=== PATIENT | male | born 1980 | race Caucasian/White ===

== ENCOUNTER 2017-10-16 09:58 | Emergency (ER) ==
[2017-10-16 10:04] VITALS: BP 211/166; TEMP 98; BMI 24.7
[2017-10-16] MEDS ORDERED: MORPHINE 2 MG/ML SYRINGE IM STA (10:09)
[2017-10-16] MEDS ORDERED: ZOFRAN 4 MG/2 ML IM STA (10:09)
[2017-10-16] MEDS ORDERED: ZESTRIL PO STA (10:49)
--- NOTE | 2017-10-16 10:52 | CT ---
EXAM: CT ABDOMEN AND PELVIS HISTORY: Abdominal pain, history gallbladder disease TECHNIQUE: CT abdomen and pelvis without intravenous contrast. Images were reconstructed using 3 mm section thickness. Reformations were prepared. COMPARISON: None FINDINGS: Diagnostic limitations exist without including contrast enhanced images. No focal hepatic or splenic lesion identified. There is ascites in the abdomen and pelvis. Ascites is simple (water attenuation ) and small volume. Gallbladder is poorly seen although has no obvious distension or calcified intra luminal calculi. Cannot exclude gallbladder wall thickening. The pancreas at the level of the head i s poorly seen. There is diffuse abdominal fat stranding, especially in the upper quadrants. No zakia s extra hepatic or intrahepatic biliary dilatation. Normal appendix. Bilateral nephrolithiasis with out obvious hydronephrosis. Ureters are poorly seen. Minimal atherosclerotic disease. No gastric d istension. Nonobstructive bowel gas pattern. The urinary bladder is decompressed, grossly unremarka ble. No prostate enlargement. No ventral hernia or acute bony abnormality. Lung bases are clear. N o pneumoperitoneum is seen. IMPRESSION: 1. Abdominal ascites and diffuse abdominal fat stranding consistent with an inflammatory or infectio us process. Primary considerations would include cholecystitis, pancreatitis or peptic ulcer disease . There is no free air or bowel obstruction. Normal appendix. 2. Nephrolithiasis without hydronephrosis.
[2017-10-16] MEDS ORDERED: UNASYN 3 GM in SODIUM CHLORIDE 100 ML IV STA (11:19)
[2017-10-16] MEDS ORDERED: DILAUDID 1 MG/ML SYRINGE IVP STA (11:24)
[2017-10-16] MEDS ORDERED: UNASYN ONE (11:27)
--- NOTE | 2017-10-16 12:11 | ED.PDOC ---
General ED Provider: Dr. CHRISTA HANSEN Chief Complaint: Abdominal Pain Stated Complaint: ABDOMINAL PAIN Time Seen by Physician: 10:00 (PAIN RUQ/RLQ ONSET 12 HRS WORSE PAST 3 HRS) Mode of Arrival: Walk-In Information Source: Patient Exam Limitations: No limitations Primary Care Provider: NO PMD Nursing and Triage Documentation Reviewed and Agree: Yes Reviewed sepsis parameters & appropriate labs ordered?: Yes System Inflammatory Response Syndrome: Not Applicable Sepsis Protocol: For patient's 13 years and over: Temp is 96.8 and below OR 101 and greater Pulse >90 BPM Resp >20/minute Acutely Altered Mental Status Are patient's symptoms suggestive of a new infection, such as: -Pneumonia -Skin, Soft Tissue -Endocarditis -UTI -Bone, Joint Infection -Implantable Device -Acute Abdominal Infection -Wound Infection -Meningitis -Blood Stream Catheter Infection -Unknown System Inflammatory Response Syndrome: Not Applicable GI Complaint Exam - Abdominal Pain Complaint/Exam Onset: Gradual Duration: 11 HRS Timing: Constant Initial Severity: Severe Location of Pain: RUQ, RLQ Radiates To: Denies: Chest, Back, Flank, LLQ, RLQ, Inguinal Character: Reports: Throbbing Aggravating: Reports: Movement, Food, Position Alleviating: Reports: Rest, Position, Medication, Bowel movement (12 HRS AGO). Denies: Vomiting, OTC analgesics Associated Signs and Symptoms: Reports: Diaphoresis, Decreased appetite, Nausea. Denies: Fever, Cough, Chest pain, Dizziness, Back pain, Constipation, Blood in stool, Dysuria, Urinary frequency, Decreased urine output, Discharge, Vomiting, Diarrhea, Decreased activity Related History: Reports: Similar episode (NOT SEVERE ) AAA Risk Factors: Reports: Hypertension (PT NONE COMPLAINT WITH HIS MEDS OF HYDRALZINE , COREG.) Cardiac Risk Factors: Reports: Hypertension Testicular Torsion Risk Factors: Reports: None Surgical Obstruction Risk Factors: Reports: None Related Surgical History: Reports: None Genitalia Exam: Present: Normal findings Differential Diagnoses: Appendicitis, Bowel Obstruction, Constipation, Pancreatitis, GB Review of Systems - Review Of Systems Constitutional: Reports: Weakness Eyes: Reports: No symptoms Ears, Nose, Mouth, Throat: Reports: No symptoms Respiratory: Reports: No symptoms Cardiac: Reports: No symptoms GI: Reports: Abdominal pain : Reports: No symptoms Musculoskeletal: Reports: No symptoms Skin: Reports: No symptoms Neurological: Reports: No symptoms Endocrine: Reports: No symptoms Hematologic/Lymphatic: Reports: No symptoms All Other Systems: Reviewed and Negative Past Medical History - Past Medical History Previously Healthy: Yes Endocrine: Reports: None Cardiovascular: Reports: Hypertension Respiratory: Reports: None Hematological: Reports: None Gastrointestinal: Reports: None Genitourinary: Reports: None Neuro/Psych: Reports: None Musculoskeletal: Reports: None Cancer: Reports: None - Surgical History General Surgical History: Reports: None - Family History Family History: Reports: None - Social History Smoking Status: Current every day smoker Hx Substance Use: Yes (marijuana) Alcohol Screening: None Physical Exam - Physical Exam Appearance: Ill-appearing Ill-appearing: Moderate Pain Distress: Severe Eyes: BRYAN, EOMI, Conjunctiva clear ENT: Ears normal, Nose normal, Oropharynx normal Respiratory: Airway patent, Breath sounds clear, Breath sounds equal, Respirations nonlabored Cardiovascular: RRR, Pulses normal, No rub, No murmur GI/: No masses, No Organomegaly, Tender (RUQ ), Bowel sounds hypoactive Musculoskeletal: Normal strength, ROM intact, No edema, No calf tenderness Skin: Warm, Dry, Normal color Neurological: Sensation intact, Motor intact, Reflexes intact, Cranial nerves intact, Alert, Oriented Psychiatric: Affect appropriate, Mood appropriate Interpretation - Radiology Interpretation Radiology Interpretation By: Radiologist (G/B DISEASE , ABDOMINAL ASCITES FAT STRANDING , NORMAL APPENDIX NO FREE AIR BOWEL) Radiology Results: Positive - Striker Off Rate: Normal Rhythm: Sinus Ectopy: None - EKG Interpretation Rate: Normal Rhythm: Sinus Ectopy: None [place]: [place] ST Segment: Normal Critical Care Note - Critical Care Note Total Time (mins): 0 Course - Course Hematology/Chemistry: 10/16/17 10:15 10/16/17 10:15 Orders, Labs, Meds: Lab Review 10/16/17 10/16/17 10/16/17 10:05 10:05 10:15 WBC 13.45 H RBC 5.17 Hgb 14.7 Hct 43.8 MCV 84.7 MCH 28.4 MCHC 33.6 RDW Coeff of Sydnee 14.9 H Plt Count 328 Immature Gran % (Auto) 0.5 Neut % (Auto) 84.9 Lymph % (Auto) 8.8 L Custer % (Auto) 5.2 Eos % (Auto) 0.2 Baso % (Auto) 0.4 Immature Gran # (Auto) 0.1 Neut # (Auto) 11.4 H Lymph # (Auto) 1.2 Custer # (Auto) 0.7 Eos # (Auto) 0.0 Baso # (Auto) 0.1 Sodium Potassium Chloride Carbon Dioxide Anion Gap BUN Creatinine Estimated GFR (MDRD) BUN/Creatinine Ratio Glucose Calcium Total Bilirubin AST ALT Alkaline Phosphatase Total Creatine Kinase 162 CK-MB (CK-2) 4.2 H CK-MB (CK-2) % 2.92663 Troponin I 0.1090 Total Protein Albumin Globulin Albumin/Globulin Ratio Amylase Lipase Urine Color Urine Clarity Urine pH Ur Specific [place] Urine Protein Urine Glucose (UA) Urine Ketones Urine Blood Urine Nitrite Urine Bilirubin Urine Urobilinogen Ur Leukocyte Esterase Urine Microscopic RBC Urine Microscopic WBC Ur Squamous Epith Cells Urine Opiates Screen Negative Ur Oxycodone Screen Negative Urine Methadone Screen Negative Ur Propoxyphene Screen Negative Ur Barbiturates Screen Negative U Tricyclic Antidepress Negative Ur Phencyclidine Scrn Negative Ur Amphetamine Screen Negative U Methamphetamines Scrn Negative U Benzodiazepines Scrn Negative Urine Cocaine Screen Negative U Cannabinoids Screen Positive 10/16/17 10/16/17 10:15 10:23 WBC RBC Hgb Hct MCV MCH MCHC RDW Coeff of Sydnee Plt Count Immature Gran % (Auto) Neut % (Auto) Lymph % (Auto) C[place] % (Auto) Eos % (Auto) Baso % (Auto) Immature Gran # (Auto) Neut # (Auto) Lymph # (Auto) C[place] # (Auto) Eos # (Auto) Baso # (Auto) Sodium 130 L Potassium 4.0 Chloride 91 L Carbon Dioxide 25 Anion Gap 18.0 BUN 31 H Creatinine 1.65 H Estimated GFR (MDRD) 47.00 BUN/Creatinine Ratio 18.78 Glucose 112 H Calcium 8.8 Total Bilirubin 1.9 H AST 78 H ALT 303 H Alkaline Phosphatase 215 H Total Creatine Kinase CK-MB (CK-2) CK-MB (CK-2) % Troponin I Total Protein 6.7 Albumin 3.0 L Globulin 3.7 Albumin/Globulin Ratio 0.81 Amylase 74 Lipase 21 Urine Color Yellow Urine Clarity Clear Urine pH 5.0 Ur Specific [place] 1.025 Urine Protein 3+ Urine Glucose (UA) Negative Urine Ketones Trace Urine Blood Trace-intact Urine Nitrite Negative Urine Bilirubin 1+ Urine Urobilinogen 0.2 Ur Leukocyte Esterase Negative Urine Microscopic RBC 0-2 Urine Microscopic WBC 0-2 Ur Squamous Epith Cells 0-2 Urine Opiates Screen Ur Oxycodone Screen Urine Methadone Screen Ur Propoxyphene Screen Ur Barbiturates Screen U Tricyclic Antidepress Ur Phencyclidine Scrn Ur Amphetamine Screen U Methamphetamines Scrn U Benzodiazepines Scrn Urine Cocaine Screen U Cannabinoids Screen Orders Category Date Time Status EKG-(ED ONLY) Stat CARDIO 10/16/17 10:49 Ordered AMYLASE Stat LAB 10/16/17 10:15 Completed CBC W/ AUTO DIFF Stat LAB 10/16/17 10:15 Completed COMPREHENSIVE METABOLIC PANEL Stat LAB 10/16/17 10:15 Completed CREATINE KINASE Stat LAB 10/16/17 10:05 Completed DRUG SCREEN (RAPID FOR ED) [DRUG SCREEN, URINE, RAPID] LAB 10/16/17 10:05 Completed Stat LIPASE Stat LAB 10/16/17 10:15 Completed TROPONIN I Stat LAB 10/16/17 10:05 Completed URINALYSIS C & S IF INDICATED Stat LAB 10/16/17 10:23 Completed Ampicillin Sodium/Sulbactam Na [Unasyn] MEDS 10/16/17 11:27 Discontinued 3 gm .ROUTE .STK-MED ONE Ampicillin Sodium/Sulbactam Na [Unasyn] 3 gm MEDS 10/16/17 11:19 Active 0.9 % Sodium Chloride [Sodium Chloride] 100 ml IV ONCE Hydromorphone HCl [Dilaudid 1 mg/ml Syringe] MEDS 10/16/17 11:24 Discontinued 1 mg IVP ONCE STA Lisinopril [Zestril] MEDS 10/16/17 10:49 Discontinued 20 mg PO ONCE STA Morphine Sulfate [Morphine 2 mg/ml Syringe] MEDS 10/16/17 10:09 Discontinued 2 mg IM ONCE STA Ondansetron HCl/Pf [Zofran 4 mg/2 ml] MEDS 10/16/17 10:09 Discontinued 4 mg IM ONCE STA CT ABDOMEN/PELVIS WO CONTRAST Stat RADS 10/16/17 10:07 Completed Medications Generic Name Dose Route Start Last Admin Trade Name Freq PRN Reason Stop Dose Admin Ampicillin Sodium/Sulbactam 100 mls @ 100 mls/hr 10/16/17 11:19 10/16/17 11: 43 Sodium 3 gm/ Sodium Chloride IV 10/16/17 12:18 100 mls/hr ONCE STA Administration Discontinued Medications Generic Name Dose Route Start Last Admin Trade Name Freq PRN Reason Stop Dose Admin Hydromorphone HCl 1 mg 10/16/17 11:24 10/16/17 11:32 Dilaudid 1 Mg/Ml Syringe IVP 10/16/17 11:25 1 mg ONCE STA Administration Lisinopril 20 mg 10/16/17 10:49 10/16/17 11:03 Zestril PO 10/16/17 10:50 20 mg ONCE STA Administration Morphine Sulfate 2 mg 10/16/17 10:09 10/16/17 10:32 Morphine 2 Mg/Ml Syringe IM 10/16/17 10:10 2 mg ONCE STA Administration Ondansetron HCl 4 mg 10/16/17 10:09 10/16/17 10:32 Zofran 4 Mg/2 Ml IM 10/16/17 10:10 4 mg ONCE STA Administration Vital Signs: Temp Pulse Resp BP Pulse Ox 10/16/17 10:00 98.0 F 100 H 20 211/166 H 98 Departure - Departure Time of Disposition: 13:00 (LAST BM 12 HRS AGO LAST MEAL 2 CRACKERS 3 HRS AGO) Disposition: TSF SHORT-TRM HOSP Discharge Problem: Abdominal pain Instructions: Abdominal Pain (ED) Condition: Good Pt referred to PMD for follow-up: Yes IPMP verified?: No Additional Instructions: Please call your Family Physician as soon as possible to schedule a follow-up appointment. Allergies/Adverse Reactions: Allergies No Known Allergies Allergy (Unverified 10/16/17 10:04) Home Medications: Ambulatory Orders Carvedilol 12.5 mg PO BID 10/16/17 Hydralazine HCl 100 mg PO TID 10/16/17 Disposition Discussed With: Patient
[2017-10-16] MEDS ORDERED: TRANDATE IVP STA (12:18)
== END 2017-10-16 13:35 | disposition short-term general hospital (02) ==
LOC: ED 09:58
DX: R10.11 Right upper quadrant pain (principal); R10.31 Right lower quadrant pain; I10 Essential (primary) hypertension; R94.31 Abnormal electrocardiogram [ECG] [EKG]; R53.1 Weakness; F17.210 Nicotine dependence, cigarettes, uncomplicated; Z79.899 Other long term (current) drug therapy
CPT/HCPCS: 36415; 80053; 80306; 81001; 82150; 82550; 82553; 83690; 84484; 85025; 93005; 93010; 96365; 96366; 96372; 99285

== ENCOUNTER 2017-10-16 13:55 | Outpatient (CLI) ==
[2017-10-16 10:04] VITALS: BMI 24.7
== END 2017-10-16 13:56 | disposition short-term general hospital (02) ==
LOC: AMBL 13:55
PROVIDERS: ATTEND Internal Medicine
DX: R10.9 Unspecified abdominal pain (principal); R18.8 Other ascites; K81.9 Cholecystitis, unspecified